=== PATIENT | female | born 1985 | race Caucasian/White ===

== ENCOUNTER 2020-04-29 06:53 | Outpatient (NON) | payer BC, SELFPAY ==
[2020-04-30 13:43] LABS: SARS-CoV-2 RNA PCR Negative
== END 2020-04-29 06:54 ==
PROVIDERS: Visit Provider Nurse Practitioner Family
DX: Z01.812 Encounter for preprocedural laboratory examination (principal); Z20.828 Contact with and (suspected) exposure to other viral communicable diseases
CPT/HCPCS: 87635; C9803; U0003